=== PATIENT | male | born 1965 | race Hispanic/Latino ===

== ENCOUNTER 2019-06-24 13:26 | Emergency (ER) | payer OTHER ==
[2019-06-24] MEDS ORDERED: SODIUM CHLORIDE 0.9% 1000 ML 1,000 ML IV ONE (14:10)
[2019-06-24] MEDS ORDERED: levETIRAcetam 1000 MG/NS 0.75% 1,000 MG/100 ML BAG IV ONE (14:10)
[2019-06-24] MEDS ORDERED: ONDANSETRON 4 MG/2 ML INJ IV ONE (14:11)
--- NOTE | 2019-06-24 14:13 | Emergency Department Report ---
HPI - General Chief Complaint: Seizure Time Seen by Provider: 06/24/19 14:10 - HPI HPI: 53-year-old male presents to the emergency department via EMS from work after having a witnessed seizure just prior to presentation. The patient fell forward and hit his face/nose on a metal bar. He was postictal when EMS first arrived but he has been awake, alert and oriented since presentation to the emergency department. He had one previous seizure about 3 to 4 weeks ago that was the first seizure he has ever had. Since that time he saw a neurolo gist, had an EEG, but was not started on any seizure medication. He cannot currently remember the name of the neurologist. He has no other past medical history. He is a tobacco smoker and an occasional alcohol drinker. He denies any illicit drug use. Currently he complains of some facial pain and nausea. He did not receive anything for his symptoms prior to presentation. ED Review of Systems ROS: Stated complaint: SEIZURE Other details as noted in HPI Comment: All other systems reviewed and negative Constitutional: denies: chills, fever Eyes: denies: eye pain, vision change ENT: denies: ear pain, throat pain Respiratory: denies: cough, shortness of breath Cardiovascular: syncope. denies: chest pain Gastrointestinal: nausea. denies: abdominal pain Genitourinary: denies: dysuria, discharge Musculoskeletal: denies: back pain, arthralgia Skin: denies: rash, lesions Neurological: headache. denies: numbness, paresthesias Physical Exam - Physical Exam Physical Exam: GENERAL: The patient is well-developed well-nourished. HENT: Normocephalic. Atraumatic. Patient has moist mucous membranes. There is some swelling and an abrasion or superficial laceration to the bridge of the nose. No septal hematoma. EYES: Extraocular motions are intact. Pupils equal reactive to light bilaterally. NECK: Supple. Trachea is midline. CHEST/LUNGS: Clear to auscultation. There is no respiratory distress noted. HEART/CARDIOVASCULAR: Regular. There is no tachycardia. ABDOMEN: Abdomen is soft, nontender. Patient has normal bowel sounds. There is no abdominal distention. SKIN: Skin is warm and dry. NEURO: The patient is awake, alert, and oriented. The patient is cooperative. The patient has no focal neurologic deficits. Normal speech. Cranial nerves II through XII grossly intact. No pronator drift or dysmetria. MUSCULOSKELETAL: There is no tenderness or deformity. There is no limitation range of motion. There is no evidence of acute injury. ED Medical Decision Making - Lab Data Result diagrams: 06/24/19 14:59 06/24/19 14:59 - EKG Data -: EKG Interpreted by Me EKG shows normal: sinus rhythm, axis (Left axis deviation), intervals, QRS complexes, ST-T waves Rate: normal - EKG Data When compared to previous EKG there are: previous EKG unavailable Interpretation: normal EKG (With left axis deviation) - Radiology Data Radiology results: report reviewed CT HEAD WITHOUT CONTRAST INDICATION / CLINICAL INFORMATION: seizure, facial trauma. TECHNIQUE: Axial imaging performed from the skull apex through the skull base without the use of contrast. Sagittal and coronal reformatted images. All CT scans at this location are performed using CT dose reduction for ALARA by means of automated exposure control. COMPARISON: None available. FINDINGS: CEREBRAL PARENCHYMA: No significant abnormality. No acute territorial infarct. HEMORRHAGE: None. EXTRA-AXIAL SPACES: Normal in size and morphology for the patient's age. VENTRICULAR SYSTEM: Normal in size and morphology for the patient's age. MIDLINE SHIFT OR HERNIATION: None. CEREBELLUM / BRAINSTEM: No significant abnormality. CALVARIUM: No significant abnormality. ORBITS: Normal as visualized. PARANASAL SINUSES / MASTOID AIR CELLS: Normal as visualized. SOFT TISSUES of HEAD: Mild right frontal soft tissue swelling is suspected. ADDITIONAL FINDINGS: None. IMPRESSION: No acute intracranial abnormality. Mild right frontal soft tissue swelling. CT FACIAL BONES WITHOUT CONTRAST INDICATION : seizure, facial trauma. TECHNIQUE: Axial imaging performed through the face with reconstructed images also reviewed. Sagittal and coronal reformatted images. All CT scans at this location are performed using CT dose reduction for ALARA by means of automated exposure control. COMPARISON: None FINDINGS: The facial bones are intact with no evidence for acute fracture or bony destruction. The sinuses and orbital cavities are unremarkable. There is moderate to severe deviation of the nasal septum to the right side by 8 mm. The skull base is intact. Moderate to severe multilevel cervical spondylosis is noted in the upper cervical spine. IMPRESSION: No acute abnormality. - Medical Decision Making This patient presents to the emergency department after having some type of syncopal episode or seizure-like activity prior to presentation. Apparently patient had some seizure-like activity a few weeks ago. The patient does not remember anything regarding the event this afternoon and I was not able to speak with anyone to confirm that it was seizure-like activity. However since being in the emergency department he has been awake, alert, oriented. There is no focal, motor or sensory deficits and his cranial nerves are intact. CT scan of the head did not show any bleed, shift, mass, ischemia, or any other acute pr ocess. CT of the facial bones did not show any fracture but just shows some chronic septal deviation. Labs have been mostly unremarkable except for some elevation in his LFTs consistent with his consistent alcohol use. He was reevaluated multiple times over multiple hours and has remained stable throughout his ED course without any further syncopal episodes or seizure-like activity. For all these reasons the patient will be discharged home to follow- up with primary care and neurology. He will return to the ER with any worsening of his symptoms or any acute distress. Critical Care Time: No Critical care attestation.: If time is entered above; I have spent that time in minutes in the direct care of this critically ill patient, excluding procedure time. ED Disposition Clinical Impression: Seizure Syncope Qualifiers: Syncope type: unspecified Qualified Code(s): R55 - Syncope and collapse Disposition: DC-01 TO HOME OR SELFCARE Is pt being admited?: No Condition: Stable Instructions: Syncope (ED), Recurrent Seizures Adult (ED) Additional Instructions: Please follow-up with your primary care physician and a neurologist in the next few days. I am giving you a referral for a local neurologist, Dr. Azevedo. Return to the emergency department with any worsening of your symptoms or any acute distress. Referrals: DENNISE QUEEN MD [Primary Care Provider] - 2-3 Days ADRIAN AZEVEDO MD [Referring] - 2-3 Days Time of Disposition: 17:18
--- NOTE | 2019-06-24 15:13 | Cat Scan Report ---
CT HEAD WITHOUT CONTRAST INDICATION / CLINICAL INFORMATION: seizure, facial trauma. TECHNIQUE: Axial imaging performed from the skull apex through the skull base without the use of cont rast. Sagittal and coronal reformatted images. All CT scans at this location are performed using CT dose reduction for ALARA by means of automated exposure control. COMPARISON: None available. FINDINGS: CEREBRAL PARENCHYMA: No significant abnormality. No acute territorial infarct. HEMORRHAGE: None. EXTRA-AXIAL SPACES: Normal in size and morphology for the patient's age. VENTRICULAR SYSTEM: Normal in size and morphology for the patient's age. MIDLINE SHIFT OR HERNIATION: None. CEREBELLUM / BRAINSTEM: No significant abnormality. CALVARIUM: No significant abnormality. ORBITS: Normal as visualized. PARANASAL SINUSES / MASTOID AIR CELLS: Normal as visualized. SOFT TISSUES of HEAD: Mild right frontal soft tissue swelling is suspected. ADDITIONAL FINDINGS: None. IMPRESSION: No acute intracranial abnormality. Mild right frontal soft tissue swelling. CT FACIAL BONES WITHOUT CONTRAST INDICATION : seizure, facial trauma. TECHNIQUE: Axial imaging performed through the face with reconstructed images also reviewed. Sagitta l and coronal reformatted images. All CT scans at this location are performed using CT dose reduction for ALARA by means of automated exposure control. COMPARISON: None FINDINGS: The facial bones are intact with no evidence for acute fracture or bony destruction. The s inuses and orbital cavities are unremarkable. There is moderate to severe deviation of the nasal sept um to the right side by 8 mm. The skull base is intact. Moderate to severe multilevel cervical spondy losis is noted in the upper cervical spine. IMPRESSION: No acute abnormality. Signer Name: Jerrell Harry Jr, MD Signed: 06/24/2019 3:09 PM Workstation Name: [id number]
[2019-06-24 15:14] LABS: Hemoglobin 15.7 gm/dl (11.8-15.2); Mean Corpuscular HGB Conc 33 % (32-34); Mean Corpuscular Volume 95 fl (84-94); Platelet Count 164 K/mm3 (140-440); Red Blood Count 4.97 M/mm3 (3.65-5.03); Red Cell Distribution Width 14.1 % (13.2-15.2)
[2019-06-24 15:34] LABS: Alanine Aminotransferase 51 units/L (7-56); Albumin 4.2 g/dL (3.9-5); BUN/Creatinine Ratio 12; Blood Urea Nitrogen 11 mg/dL (9-20); Calcium 9.3 mg/dL (8.4-10.2); Hemolysis Index 23
[2019-06-24 16:45] VITALS: BP 158/102
[2019-06-24 16:54] LABS: Basophils % (Manual) 0 % (0.0-1.8); Eosinophils % (Manual) 0 % (0.0-4.3); RBC Morphology Normal; Total Cells Counted 100
== END 2019-06-24 17:52 | disposition home or self-care (01) ==
LOC: ED 13:26
DX: G40.909 Epilepsy, unspecified, not intractable, without status epilepticus (principal); R55 Syncope and collapse; F17.200 Nicotine dependence, unspecified, uncomplicated
CPT/HCPCS: 36415; 70450; 70486; 80053; 82550; 84443; 85007; 85025; 93005; 96365; 96375; 99285; J1953; J2405; J7030; 80320; G0480

== ENCOUNTER 2019-12-02 09:59 | Emergency (ER) | payer OTHER ==
--- NOTE | 2019-12-02 10:49 | Emergency Department Report ---
ED Seizure HPI - General Chief Complaint: Seizure Stated Complaint: SEIZURE/COMBATIVE Time Seen by Provider: 12/02/19 10:13 Source: patient, EMS Mode of arrival: Stretcher Limitations: No Limitations - History of Present Illness Initial Comments: CC: Seizure HPI: This is a 54-year-old male with history of previous seizure who presents with seizure witnessed at work today. Upon EMS arrival patient was postictal combative aggressive. He was given Versed IM intranasally. He was placed in restraints. Upon my examination, patient is sleeping but easily arousable. He gives a full history. He does not take seizure medicine because this is his only third seizure during his lifetime. However this is his third seizure in 6 months. He was evaluated by my colleague in June at this hospital. According to ED documentation at that time, patient informed my colleague that he had outpatient work-up for first seizure in spring of this year. Work-up including EEG. Drinks beer daily. Last drink was yesterday. MD Complaint: seizure -: Sudden Witnessed:: Yes Trauma: Yes (Swelling right arm) Seizure History: other (2 seizures earlier this year) Place: work Associated Symptoms: denies other symptoms Treatments Prior to Arrival: benzodiazepines - Related Data Allergies Allergy/AdvReac Type Severity Reaction Status Date / Time No Known Allergies Allergy Unverified 06/24/19 14:40 ED Review of Systems ROS: Stated complaint: SEIZURE/COMBATIVE Other details as noted in HPI Comment: Unobtainable due to pts medical conditions Constitutional: denies: fever, malaise Respiratory: denies: cough, shortness of breath Cardiovascular: denies: chest pain Gastrointestinal: denies: abdominal pain, nausea, vomiting Skin: lesions Neurological: denies: headache ED Past Medical Hx - Past Medical History Previous Medical History?: Yes Hx Seizures: Yes - Surgical History Past Surgical History?: Yes Additional Surgical History: knee surgery - Social History Smoking Status: Current Every Day Smoker Substance Use Type: Alcohol ED Physical Exam - General Limitations: No Limitations General appearance: alert, in no apparent distress - Head Head exam: Present: normocephalic, other (mild swelling and bruising lateral right eyebrow region) - Eye Eye exam: Present: normal appearance - ENT ENT exam: Present: mucous membranes moist - Neck Neck exam: Present: normal inspection, full ROM - Respiratory Respiratory exam: Present: normal lung sounds bilaterally. Absent: respiratory distress, wheezes, rales, rhonchi - Cardiovascular Cardiovascular Exam: Present: regular rate, normal rhythm, normal heart sounds. Absent: systolic murmur, diastolic murmur, rubs, gallop - GI/Abdominal GI/Abdominal exam: Present: soft, normal bowel sounds. Absent: distended, tenderness, guarding, rebound - Rectal Rectal exam: Present: deferred - Extremities Exam Extremities exam: Present: normal inspection - Back Exam Back exam: Present: normal inspection - Neurological Exam Neurological exam: Present: alert, oriented X3 - Psychiatric Psychiatric exam: Present: normal affect, normal mood - Skin Skin exam: Present: warm, dry, intact, normal color. Absent: rash ED Course Vital Signs 12/02/19 12/02/19 12/02/19 10:12 10:15 10:31 Temperature Pulse Rate 109 H 105 H Respiratory 14 9 L Rate Blood Pressure 141/90 141/90 Blood Pressure [Right] O2 Sat by Pulse 97 99 97 Oximetry 12/02/19 12/02/19 12/02/19 10:45 11:01 11:15 Temperature Pulse Rate 100 H 100 H 103 H Respiratory 9 L 17 8 L Rate Blood Pressure 141/90 141/90 141/90 Blood Pressure [Right] O2 Sat by Pulse 97 97 96 Oximetry 12/02/19 12/02/19 12/02/19 11:31 11:45 11:50 Temperature 98.2 F Pulse Rate 100 H 93 H 68 Respiratory 10 L 10 L 18 Rate Blood Pressure 141/90 141/90 Blood Pressure 149/80 [Right] O2 Sat by Pulse 95 97 100 Oximetry ED Medical Decision Making - Lab Data Result diagrams: 12/02/19 10:58 12/02/19 10:58 - Medical Decision Making Mr. Gray is a 54-year-old male who presents with third seizure in 6 months. I had a lengthy conversation with Mr. Gray. I informed him that I suspect alcohol withdrawal seizures. He is very motivated to completely abstain from alcohol intake. He drinks 3-5 alcoholic beverages per day. He drinks beer and a "couple of shots". He understands why he has been prescribed Keppra. I informed him of the side effect profile of this medication. He understands that he is not allowed to drive a vehicle until he is seen by neurologist. He understands to avoid working at heights. He understands to abstain from swimming or working with heated surfaces without supervision. Patient was given neurology referral. He is discharged home. I have reviewed CBC and chemistry. I suspect leukocytosis due to marginalization. Also suspect that mild hyperkalemia due to hemolysis with normal kidney function. Repeat potassium not indicated in this scenario. Critical care attestation.: If time is entered above; I have spent that time in minutes in the direct care of this critically ill patient, excluding procedure time. ED Disposition Clinical Impression: Seizure, Facial contusion Disposition: DC- TO HOME OR SELFCARE Is pt being admited?: No Does the pt Need Aspirin: No Condition: Stable Instructions: Recurrent Seizures Adult (ED) Referrals: JOSE MOSS MD [Staff Physician] - 3-5 Days
[2019-12-02] MEDS ORDERED: levETIRAcetam 1000 MG/NS 0.75% 1,000 MG/100 ML BAG IV ONE (10:50)
[2019-12-02 11:29] LABS: Hematocrit 43.1 % (35.5-45.6); Hemoglobin 15.1 gm/dl (11.8-15.2); Mean Corpuscular HGB Conc 35 % (32-34); Mean Corpuscular Volume 95 fl (84-94); Platelet Count 205 K/mm3 (140-440); Red Blood Count 4.56 M/mm3 (3.65-5.03); Red Cell Distribution Width 14.4 % (13.2-15.2)
[2019-12-02 11:51] VITALS: BP 149/80
[2019-12-02 12:00] LABS: BUN/Creatinine Ratio 20; Blood Urea Nitrogen 16 mg/dL (9-20); Calcium 9.3 mg/dL (8.4-10.2); Hemolysis Index 14
[2019-12-02 12:19] LABS: Band Neutrophils # (Manual) 0.3 K/mm3; Platelet Estimate Consistent w Auto; RBC Morphology Normal; Total Cells Counted 100
== END 2019-12-02 13:23 | disposition home or self-care (01) ==
LOC: ED 09:59
DX: S00.83XA Contusion of other part of head, initial encounter (principal); G40.909 Epilepsy, unspecified, not intractable, without status epilepticus; F17.200 Nicotine dependence, unspecified, uncomplicated; Z98.890 Other specified postprocedural states; X58.XXXA Exposure to other specified factors, initial encounter; Y93.89 Activity, other specified; Y92.89 Other specified places as the place of occurrence of the external cause; Y99.0 Civilian activity done for income or pay
CPT/HCPCS: 36415; 80048; 85007; 85025; 96374; 99284; J1953; 96365; 96366

== ENCOUNTER 2021-01-18 08:35 | Emergency (ER) | payer SELFPAY ==
[2021-01-18] MEDS ORDERED: SODIUM CHLORIDE 0.9% 1000 ML 1,000 ML IV ONE (08:47)
--- NOTE | 2021-01-18 08:51 | Emergency Department Report ---
ED Seizure HPI - General Chief Complaint: Extremity Injury, Lower Stated Complaint: SEIZURE/HEMATOMA RT SIDE OF HEAD Source: patient Mode of arrival: Ambulatory Limitations: No Limitations - History of Present Illness Initial Comments: Patient was brought in by EMS for seizure. Patient does not really have any recollection of the event. He does not know where he is. He states that he remembers going to bed last night and felt fine. He does not remember anything about this morning. He believes that he might have been at work. EMS reports that they were called to the worksite. Patient was found seizing. He had fallen out of his chair and struck his head possibly on his desk or the concrete floor. Patient stopped seizing. He was postictal. EMS transported the patient. They did establish an IV. Glucose was 139. Per EMS, patient has had a seizure before. They have transported him secondary to seizures before. - Related Data Allergies Allergy/AdvReac Type Severity Reaction Status Date / Time No Known Allergies Allergy Unverified 06/24/19 14:40 ED Review of Systems ROS: Stated complaint: SEIZURE/HEMATOMA RT SIDE OF HEAD Other details as noted in HPI Comment: Unobtainable due to pts medical conditions (Patient is currently postictal and cannot really clearly answer these questions) ED Past Medical Hx - Past Medical History Hx Seizures: Yes (Per EMS) - Surgical History Additional Surgical History: knee surgery - Family History Family history: no significant - Social History Smoking Status: Current Every Day Smoker (We discussed tobacco cessation x3 minutes) Substance Use Type: Alcohol ED Physical Exam - General Limitations: Altered Mental Status (Postictal), Other (Pulse ox was noted and normal) General appearance: alert, in no apparent distress - Head Head exam: Present: normocephalic, other (Large hematoma to the right temporal area and periorbital area above the eye) - Eye Eye exam: Present: normal appearance, EOMI. Absent: scleral icterus - ENT ENT exam: Present: normal exam, mucous membranes moist, normal external ear exam, other (There are contusions to the tongue from biting consistent with seizure) - Neck Neck exam: Present: normal inspection. Absent: tenderness, meningismus - Respiratory Respiratory exam: Present: normal lung sounds bilaterally. Absent: respiratory distress - Cardiovascular Cardiovascular Exam: Present: regular rate, normal rhythm - GI/Abdominal GI/Abdominal exam: Present: soft. Absent: tenderness - Extremities Exam Extremities exam: Present: normal capillary refill. Absent: calf tenderness - Back Exam Back exam: Absent: CVA tenderness (R), CVA tenderness (L) - Neurological Exam Neurological exam: Present: alert, CN II-XII intact, reflexes normal, other (Confused and postictal). Absent: motor sensory deficit - Psychiatric Psychiatric exam: Present: normal affect, normal mood - Skin Skin exam: Present: warm, dry ED Course Vital Signs 01/18/21 08:43 Temperature 97.8 F Pulse Rate 58 L Respiratory 20 Rate Blood Pressure 144/66 [Right] O2 Sat by Pulse 100 Oximetry - Reevaluation(s) Reevaluation #1: 01/18/21 08:50 EMS was met upon arrival. IV and labs ordered. CT was ordered. Old records reviewed. Reevaluation #2: 01/18/21 09:23 CT reading was pending. Images have been reviewed. Zofran was ordered. Reevaluation #3: 01/18/21 11:40 Labs are noted and the patient was discharged ED Medical Decision Making - Lab Data Result diagrams: 01/18/21 09:58 01/18/21 09:58 Rhythm strip: Normal sinus rhythm without ectopy per monitor observe 10 seconds. - Medical Decision Making Patient present with a seizure. Etiology is unknown. Patient does have a remote history of alcohol consumption. Whether this is an alcohol-related seizure is an determinable. He would benefit from outpatient evaluation and consideration of EEG. He does not have any metabolic derangement that would account for seizure activity. There is no obvious infectious pathology. There is no evidence of tumor or bleed based on CT. Patient will be referred for outpatient testing. We have discussed driving risks and restrictions. Critical Care Time: No Critical care attestation.: If time is entered above; I have spent that time in minutes in the direct care of this critically ill patient, excluding procedure time. ED Disposition Clinical Impression: Seizure Disposition: 01 HOME / SELF CARE / HOMELESS Is pt being admited?: No Condition: Stable Instructions: Seizure, Adult Additional Instructions: Drink plenty water. Follow-up with your regular doctor. If you do not have a regular doctor, follow-up with the referral physician. Do not drive or operate machinery until you have been released by your regular doctor. Do not take a bath by yourself or swim alone due to the risk of drowning associated with seizures. Referrals: PRIMARY CARE,MD [Primary Care Provider] - 3-5 Days STANISLAV NAGY MD [Staff Physician] - 3-5 Days
[2021-01-18] MEDS ORDERED: ONDANSETRON 4 MG/2 ML INJ IV ONE (09:22)
[2021-01-18] MEDS ORDERED: THIAMINE 100 MG in SODIUM CHLORIDE 0.9% 50 ML IV ONE (09:30)
[2021-01-18] MEDS ORDERED: FOLIC ACID 1 MG in SODIUM CHLORIDE 0.9% 50 ML IV ONE (09:30)
--- NOTE | 2021-01-18 09:30 | Cat Scan Report ---
CT BRAIN: 01/18/2021 INDICATION / CLINICAL INFORMATION: sz, temporal hematoma. COMPARISON: CT brain 06/24/2019 FINDINGS: BRAIN/INTRACRANIAL STRUCTURES: Unenhanced CT images of the brain were obtained. There is no evidence of acute abnormality. Ventricles and sulci are within normal limits of size and shape for a patient of this age. There is no evidence of ischemic injury, intracranial hemorrhage, or mass. There are no abnormal extr a-axial fluid collections. Prominent right lateral periorbital soft tissue swelling and subcutaneous hematoma is noted. There is no evidence of acute osseous injury. EXTRACRANIAL STRUCTURES: Unremarkable. IMPRESSION: No acute intracranial abnormality. Right lateral facial soft tissue injury noted. Overall no significant change intracranial appearance when compared to the prior exam. All CT scans at this location are performed using dose reduction to ALARA by means of automated expos ure control. Signer Name: Davin Lee MD Signed: 01/18/2021 9:25 AM Workstation Name: [id number]
[2021-01-18 10:58] LABS: Hemoglobin 15.2 gm/dl (11.8-15.2); Mean Corpuscular HGB Conc 32 % (32-34); Mean Corpuscular Volume 93 fl (84-94); Platelet Count 228 K/mm3 (140-440); Red Blood Count 5.07 M/mm3 (3.65-5.03); Red Cell Distribution Width 16.1 % (13.2-15.2)
[2021-01-18 11:21] LABS: BUN/Creatinine Ratio 23; Blood Urea Nitrogen 18 mg/dL (9-20); Calcium 9.3 mg/dL (8.4-10.2); Hemolysis Index 6
[2021-01-18 12:50] VITALS: BP 138/85
== END 2021-01-18 12:50 | disposition home or self-care (01) ==
LOC: ED 08:35
DX: R56.9 Unspecified convulsions (principal); F17.200 Nicotine dependence, unspecified, uncomplicated
CPT/HCPCS: 36415; 70450; 80048; 83735; 85027; 96361; 96365; 96368; 96375; 99284; J2405; J3411; J3490; J7030; Q0162